=== PATIENT | male | born 1950 | race Caucasian/White ===

== ENCOUNTER 2022-04-08 12:46 | Outpatient (REF) | payer MEDICARE, SELFPAY ==
[2022-04-08 14:13] LABS: Ferritin 27 ng/mL (20-250)
== END 2022-04-08 12:47 | disposition home or self-care (01) ==
LOC: HO.LAB 12:46
PROVIDERS: PCP Internal Medicine; Visit Provider Psychiatry & Neurology Neurology
DX: R53.83 Other fatigue (principal)
CPT/HCPCS: 36415; 82728

== ENCOUNTER → 2022-12-15 09:35 | Outpatient (BNVA) | payer MEDICARE, SELFPAY | PROVIDERS: PCP Internal Medicine; Visit Provider Psychiatry & Neurology Neurology | DX: G25.2 Other specified forms of tremor (principal); G31.84 Mild cognitive impairment of uncertain or unknown etiology | CPT/HCPCS: 99212 ==